=== PATIENT | female | born 1955 | race Caucasian/White ===

== ENCOUNTER → 2024-03-13 12:45 | Outpatient (REF) | payer BC, MEDICARE, SELFPAY | LOC: RAD 12:45 | PROVIDERS: ATTENDING PHYSICIAN Internal Medicine | DX: R05.1 Acute cough (principal); J47.9 Bronchiectasis, uncomplicated; J45.20 Mild intermittent asthma, uncomplicated | CPT/HCPCS: 71046 ==

== ENCOUNTER → 2024-05-23 11:16 | Outpatient (REF) | payer BC, SELFPAY | LOC: MRI 3T 11:16 | PROVIDERS: ATTENDING PHYSICIAN Orthopaedic Surgery Orthopaedic Surgery of the Spine | DX: M24.29 Disorder of ligament, other specified site (principal) | CPT/HCPCS: 72141 ==

== ENCOUNTER → 2024-07-19 14:14 | Outpatient (REF) | payer BC, MEDICARE, SELFPAY | LOC: HWRAD 14:14 | PROVIDERS: ATTENDING PHYSICIAN Nurse Practitioner Adult Health | DX: E04.1 Nontoxic single thyroid nodule (principal); M47.12 Other spondylosis with myelopathy, cervical region | CPT/HCPCS: 72052; 76536 ==

== ENCOUNTER 2024-07-26 05:55 | Day surgery (SDC) | payer BC, MEDICARE, SELFPAY ==
[2024-07-11 10:50] LABS: % Basophils 0.9 % (0-2); % Eosinophils 2.1 % (0-6); % Immature Granulocytes 0.3 % (0-0.5); % Lymphocytes 25.7 % (20.5-51.1); % Monocytes 9.3 % (1.7-9.3); % Neutrophils 61.7 % (42.2-75.2); Absolute Basophils 0.1 10^3/uL (0-0.2); Absolute Eosinophils 0.1 10^3/uL (0-0.7); Absolute Lymphocytes 1.5 10^3/uL (1.2-3.4); Absolute Monocytes 0.5 10^3/uL (0.1-0.6); Absolute Neutrophils 3.5 10^3/uL (1.4-6.5); Hematocrit 39.6 % (37.0-47.0); Hemoglobin 13.4 g/dL (12.0-16.0); Mean Corp Hgb Conc. 33.8 g/dL (33.0-37.0); Mean Corpuscular Hgb 30.5 pg (27.0-31.0); Mean Corpuscular Volume 90.2 fL (81.0-99.0); Mean Platelet Volume 12.1 fL (7.4-10.4); Nucleated Red Blood Cells % 0 %; Platelet Count 186 10^3/uL (130-400); Red Blood Cell Count 4.39 10^6/uL (4.20-5.40); Red Cell Dist. Width 12.2 % (11.5-14.5); White Blood Cell Count 5.7 10^3/uL (4.8-10.8)
[2024-07-11 11:17] LABS: ALT (SGPT) 34 U/L (0-35); AST (SGOT) 32 U/L (14-36); Albumin 4.8 g/dl (3.5-5.0); Alkaline Phosphatase 81 U/L (38-126); Blood Urea Nitrogen 19 mg/dl (7-17); Calcium 9.8 mg/dl (8.4-10.2); Carbon Dioxide 28 mmol/L (22-30); Chloride 99 mmol/L (98-107); Glucose 78 mg/dl (70-99); HDL Cholesterol 65 mg/dl; LDL Cholesterol, Calculated 54 mg/dl; Potassium 4.1 mmol/L (3.5-5.1); Sodium 139 mmol/L (135-145); Total Bilirubin 1.4 mg/dl (0.2-1.3); Total Cholesterol 134 mg/dl (50-199); Total Protein 7.2 g/dl (6.3-8.2); Triglyceride 76 mg/dl (10-149); Very Low Density Lipoprotein 15 mg/dl (0-30); eGFR > 60.00
[2024-07-11 11:34] LABS: Vitamin D, 25-OH*** 61.8 ng/mL (30-80)
[2024-07-11 11:47] LABS: TSH Reflex To Free T4 2.11 uIU/ml (0.47-4.68)
[2024-07-11 11:58] LABS: Glycohemoglobin (HgbA1c) 5.2 % (4.0-5.6)
[2024-07-11 13:40] VITALS: BMI 28.0
[2024-07-20 14:30] VITALS: BMI 28.0
[2024-07-26] VITALS (21 sets, daily range): BP systolic 107–134; BP diastolic 45–72; PULSE 88; O2SAT 94; BMI 28.0
[2024-07-26] MEDS: CELEBREX 200 MG PO (06:45)
[2024-07-26] MEDS: LYRICA 150 MG PO (06:45)
[2024-07-26] MEDS: METHOCARBAMOL 750 MG PO (06:45)
[2024-07-26] MEDS: TYLENOL 1000 MG PO ×4 (06:46→23:47)
[2024-07-26] MEDS: NORMOSOL-R/PLASMALYTE-A 1000 IV ×3 (06:47→23:47)
[2024-07-26] MEDS: ULTRAM 50 MG PO ×2 (12:27→23:47)
[2024-07-26] MEDS: LIPITOR 40 MG PO (12:27)
[2024-07-26] MEDS: ANCEF 5 IV ×2 (14:09→21:40)
[2024-07-26] MEDS: PLAQUENIL 200 MG PO (21:40)
[2024-07-26] MEDS: COZAAR 25 MG PO (21:40)
[2024-07-26] MEDS: ZYRTEC 10 MG PO (21:41)
[2024-07-26] MEDS: RESTASIS 0.05% OPHTHALMIC EMULSION 1 DROPS BOTH EYES (21:41)
[2024-07-26] MEDS: SINGULAIR 10 MG PO (21:41)
[2024-07-26] MEDS: SENOKOT 17.2 MG PO (21:41)
[2024-07-26] MEDS: COLACE 100 MG PO (21:41)
[2024-07-26] MEDS: LYRICA 50 MG PO (21:42)
[2024-07-26] MEDS: METHOCARBAMOL 1500 MG PO (23:47)
[2024-07-27 03:11] VITALS: BP 116/53
[2024-07-27] MEDS: TYLENOL 1000 MG PO (06:07)
[2024-07-27 06:31] LABS: Hemoglobin 10.9 g/dL (12.0-16.0)
[2024-07-27 06:51] LABS: Blood Urea Nitrogen 9 mg/dl (7-17); Calcium 8.9 mg/dl (8.4-10.2); Carbon Dioxide 30 mmol/L (22-30); Chloride 103 mmol/L (98-107); Estimated Creatinine Clearance 94 ml/min; Glucose 92 mg/dl (70-99); Potassium 3.6 mmol/L (3.5-5.1); Sodium 136 mmol/L (135-145); eGFR > 60.00
[2024-07-27 08:00] VITALS: BP 139/68
--- NOTE | 2024-07-27 08:13 | W.DS.TRANS ---
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
-
Discharge Instructions:
Instructions:
Stand-Alone Forms:
Changes to Home Medications: No
Discharge Medications:
DC Medications w/original date entered in [email or web address]
aspirin 81 mg tablet,delayed release 81 mg PO DAILY 03/21/18
montelukast 10 mg tablet 10 mg PO HS 03/21/18
hydrochlorothiazide 25 mg tablet 25 mg PO DAILY #14 tabs 03/22/18
B12 Active 50 mg PO DAILY 07/19/24
Magnesium Taurate 125 mg PO BID 07/19/24
acetaminophen 650 mg tablet,extended release 1,300 mg PO Q12H 07/19/24
albuterol sulfate 0.63 mg/3 mL solution for nebulization 0.63 mg inhalation Q4H PRN asthma 07/19/24
ascorbic acid (vitamin C) 1,000 mg tablet (Vitamin C) 1,000 mg PO DAILY 07/19/24
atorvastatin 40 mg tablet 40 mg PO DAILY 07/19/24
cetirizine 10 mg tablet (Zyrtec) 10 mg PO HS 07/19/24
cholecalciferol (vitamin D3) 25 mcg (1,000 unit) tablet (Vitamin D3) 50 mcg PO DAILY 07/19/24
cyclosporine 0.05 % eye drops in a dropperette 1 drp BOTH EYES Q12H 07/19/24
diclofenac sodium 1 % topical gel 1 ea topical HS 07/19/24
docusate sodium 100 mg capsule (Colace) 100 mg PO BID 07/19/24
estradiol 0.01% (0.1 mg/gram) vaginal cream 1 appful vaginal MOWEFR 07/19/24
gabapentin 300 mg capsule 300 mg PO DAILY 07/19/24
gabapentin 300 mg capsule 900 mg PO HS 07/19/24
hydroxychloroquine 200 mg tablet 200 mg PO BID 07/19/24
losartan 50 mg tablet 50 mg PO HS 07/19/24
omega-3 fatty acids-fish oil 684 mg-1,200 mg capsule,delayed release 1 cap PO DAILY 07/19/24
sodium chloride 0.9 % solution 3 ml miscellaneous PRN PRN nebulizer solution 07/19/24
tirzepatide (weight loss) 12.5 mg/0.5 mL subcutaneous pen injector (Zepbound) 12.5 mg SC SA 07/19/24
Home Medication Changes
Pending Results: No
--- NOTE | 2024-07-27 08:13 | W.PN.SP ---
Today's Communication / Plan
-
s/p ACDFDoing well
PT
D/C
Subjective / Objective
Subjective Data
Pt doing well
Shoulders better
MOving both UE
Objective Data
Vital Signs
Temp Pulse Resp BP Pulse Ox
98.2 F 72 17 116/53 94
07/27/24 03:11 07/27/24 03:11 07/27/24 03:11 07/27/24 03:11 07/27/24 03:11
Intake and Output
07/26/24 07/27/24 07/28/24
06:59 06:59 06:59
Intake Total 2380 / 2380
Output Total 300 / 300
Balance 2079 / 2080
Intake:
Oral fluids 960 / 960
IV fluids (Total) 1420 / 1420
Normosol 400 / 400
Output:
Urine, Voided 300 / 300
Other:
Number of approximated MODERATE 1
amounts of urine
Number of approximated LARGE 1
amounts of urine
Lab Data
07/27/24 06:19
07/27/24 06:19
--- NOTE | 2024-07-27 08:23 | W.PN.ORTHO ---
Today's Communication / Plan
-
D/C when stable
Assessment
.
Distal Motor Intact: Yes
Dressing:
Clean, dry and intact.
Assessment:
*Prevention of post-op complications re orthostasis and constipation/ileus --discussed and outlined in d/c instructions: TEDs stockings, minimizing opioid, adequate hydration and adhering to bowel regimen*
Plan
.
Surgery / Date: C5-6 ACDF 07/26/24
Activity:
Out of bed.
PT/OT
Discharge Plan: Home
Subjective
.
.:
Patient resting comfortably.
Vital Signs and Labs
.
Vital Signs and Labs:
Lab Results
07/27/24 06:19
07/27/24 06:19
Temp Pulse Resp BP Pulse Ox
98.2 F 72 17 116/53 94
07/27/24 03:11 07/27/24 03:11 07/27/24 03:11 07/27/24 03:11 07/27/24 03:11
Physical Exam
-
HEENT: No pallor, cyanosis, or jaundice. Throat clear.
NECK: Supple. No JVD.
RESPIRATORY: Lungs clear to auscultation.
CVS: S1, S2 normal. RRR.� No murmur, rub or gallop.
ABDOMEN: Soft, non-tender. No distension. BS+/normal.
EXTREMITIES: strength equal, no calf pain with palpation
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 No focal deficits. socially responsible investment adviser grossly intact
--- NOTE | 2024-07-27 08:34 | W.DS.TRANS ---
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
-
Discharge Instructions:
Discharge Diagnosis/Procedures C 5-6 ACDF
Diet As tolerated
Activity No strenuous activity
Additional Activity Adequate hydration, minimize Oxy and wear TEDs
stockings to prevent low blood pressure/
dizziness
Driving Restrictions No driving
Instructions:
Stand-Alone Forms: [facility] D/C Inst.
Changes to Home Medications: Yes
Discharge Medications:
DC Medications w/original date entered in [facility]
aspirin 81 mg tablet,delayed release 81 mg PO DAILY 03/21/18
montelukast 10 mg tablet 10 mg PO HS 03/21/18
B12 Active 50 mg PO DAILY 07/19/24
Magnesium Taurate 125 mg PO BID 07/19/24
albuterol sulfate 0.63 mg/3 mL solution for nebulization 0.63 mg inhalation Q4H PRN asthma 07/19/24
ascorbic acid (vitamin C) 1,000 mg tablet (Vitamin C) 1,000 mg PO DAILY 07/19/24
atorvastatin 40 mg tablet 40 mg PO DAILY 07/19/24
cetirizine 10 mg tablet (Zyrtec) 10 mg PO HS 07/19/24
cholecalciferol (vitamin D3) 25 mcg (1,000 unit) tablet (Vitamin D3) 50 mcg PO DAILY 07/19/24
cyclosporine 0.05 % eye drops in a dropperette 1 drp BOTH EYES Q12H 07/19/24
diclofenac sodium 1 % topical gel 1 ea topical HS 07/19/24
docusate sodium 100 mg capsule (Colace) 100 mg PO BID 07/19/24
estradiol 0.01% (0.1 mg/gram) vaginal cream 1 appful vaginal MOWEFR 07/19/24
gabapentin 300 mg capsule 300 mg PO DAILY 07/19/24
gabapentin 300 mg capsule 900 mg PO HS 07/19/24
hydroxychloroquine 200 mg tablet 200 mg PO BID 07/19/24
omega-3 fatty acids-fish oil 684 mg-1,200 mg capsule,delayed release 1 cap PO DAILY 07/19/24
sodium chloride 0.9 % solution 3 ml miscellaneous PRN PRN nebulizer solution 07/19/24
tirzepatide (weight loss) 12.5 mg/0.5 mL subcutaneous pen injector (Zepbound) 12.5 mg SC SA 07/19/24
Saccharomyces boulardii 250 mg capsule (Florastor) 250 mg PO BID #1 cap 07/27/24
acetaminophen 650 mg tablet,extended release 1,300 mg (2 x 650 mg) PO TID #0 tabs 07/27/24
cephalexin 500 mg capsule 500 mg PO QID infection prevention #20 caps 07/27/24
dexamethasone 4 mg tablet 4 mg PO BID inflammation #6 tabs 07/27/24
docusate sodium 100 mg capsule (Colace) 100 mg PO BID stool softner #1 cap 07/27/24
hydrochlorothiazide 25 mg tablet 25 mg PO DAILY #14 tabs 07/27/24
losartan 50 mg tablet 50 mg PO HS #0 tabs 07/27/24
magnesium hydroxide 400 mg/5 mL oral suspension (Milk of Magnesia) 30 ml PO HS PRN constipation #1 mL 07/27/24
ondansetron 4 mg disintegrating tablet 4 mg PO Q6H PRN n/v #20 tabs 07/27/24
oxycodone 5 mg tablet 5 mg PO Q6H PRN moderate-severe pain #30 tabs 07/27/24
sennosides 8.6 mg tablet (Senokot) 17.2 mg (2 x 8.6 mg) PO BID laxative #2 tabs 07/27/24
Home Medication Changes
tirzepatide (weight loss) 12.5 mg/0.5 mL subcutaneous pen injector (Zepbound) 12.5 mg SC SA 07/19/24
Saccharomyces boulardii 250 mg capsule (Florastor) 250 mg PO BID #1 cap 07/27/24
acetaminophen 650 mg tablet,extended release 1,300 mg (2 x 650 mg) PO TID #0 tabs 07/27/24
cephalexin 500 mg capsule 500 mg PO QID infection prevention #20 caps 07/27/24
dexamethasone 4 mg tablet 4 mg PO BID inflammation #6 tabs 07/27/24
docusate sodium 100 mg capsule (Colace) 100 mg PO BID stool softner #1 cap 07/27/24
hydrochlorothiazide 25 mg tablet 25 mg PO DAILY #14 tabs 07/27/24
losartan 50 mg tablet 50 mg PO HS #0 tabs 07/27/24
magnesium hydroxide 400 mg/5 mL oral suspension (Milk of Magnesia) 30 ml PO HS PRN constipation #1 mL 07/27/24
ondansetron 4 mg disintegrating tablet 4 mg PO Q6H PRN n/v #20 tabs 07/27/24
oxycodone 5 mg tablet 5 mg PO Q6H PRN moderate-severe pain #30 tabs 07/27/24
sennosides 8.6 mg tablet (Senokot) 17.2 mg (2 x 8.6 mg) PO BID laxative #2 tabs 07/27/24
Pending Results: No
--- NOTE | 2024-07-27 08:45 | CM ---
Cm reviewed medical records. CM met with patient in room. Patient confirmed demographics. Patient is active with her PCP. Patient has medication coverage.
Patient's son Jose will provide transportation home.
PLAN: home no further needs.
[2024-07-27 08:50] VITALS: BP 136/67; BP 140/72; PULSE 68; O2SAT 95
[2024-07-27] MEDS: LIPITOR 40 MG PO (09:32)
[2024-07-27] MEDS: SENOKOT 17.2 MG PO (09:32)
[2024-07-27] MEDS: PLAQUENIL 200 MG PO (09:32)
[2024-07-27] MEDS: COLACE 100 MG PO (09:32)
[2024-07-27] MEDS: LYRICA 50 MG PO (09:33)
[2024-07-27] MEDS: RESTASIS 0.05% OPHTHALMIC EMULSION 1 DROPS BOTH EYES (09:33)
[2024-07-27 10:05] VITALS: BP 137/69; PULSE 90; O2SAT 97
[2024-07-27 10:46] VITALS: BP 152/73
--- NOTE | 2024-07-27 11:33 | W.DS.TRANS ---
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
-
Discharge Instructions:
Discharge Diagnosis/Procedures C 5-6 ACDF
Diet As tolerated
Activity No strenuous activity
Additional Activity Adequate hydration, minimize Oxy and wear TEDs
stockings to prevent low blood pressure/
dizziness
Driving Restrictions No driving
Instructions:
Stand-Alone Forms: [facility]ick Cervical D/C Inst.
Changes to Home Medications: Yes
Discharge Medications:
DC Medications w/original date entered in [facility] [employer]
aspirin 81 mg tablet,delayed release 81 mg PO DAILY 03/21/18
montelukast 10 mg tablet 10 mg PO HS 03/21/18
B12 Active 50 mg PO DAILY 07/19/24
Magnesium Taurate 125 mg PO BID 07/19/24
albuterol sulfate 0.63 mg/3 mL solution for nebulization 0.63 mg inhalation Q4H PRN asthma 07/19/24
ascorbic acid (vitamin C) 1,000 mg tablet (Vitamin C) 1,000 mg PO DAILY 07/19/24
atorvastatin 40 mg tablet 40 mg PO DAILY 07/19/24
cetirizine 10 mg tablet (Zyrtec) 10 mg PO HS 07/19/24
cholecalciferol (vitamin D3) 25 mcg (1,000 unit) tablet (Vitamin D3) 50 mcg PO DAILY 07/19/24
cyclosporine 0.05 % eye drops in a dropperette 1 drp BOTH EYES Q12H 07/19/24
diclofenac sodium 1 % topical gel 1 ea topical HS 07/19/24
docusate sodium 100 mg capsule (Colace) 100 mg PO BID 07/19/24
estradiol 0.01% (0.1 mg/gram) vaginal cream 1 appful vaginal MOWEFR 07/19/24
gabapentin 300 mg capsule 300 mg PO DAILY 07/19/24
gabapentin 300 mg capsule 900 mg PO HS 07/19/24
hydroxychloroquine 200 mg tablet 200 mg PO BID 07/19/24
omega-3 fatty acids-fish oil 684 mg-1,200 mg capsule,delayed release 1 cap PO DAILY 07/19/24
sodium chloride 0.9 % solution 3 ml miscellaneous PRN PRN nebulizer solution 07/19/24
tirzepatide (weight loss) 12.5 mg/0.5 mL subcutaneous pen injector (Zepbound) 12.5 mg SC SA 07/19/24
Saccharomyces boulardii 250 mg capsule (Florastor) 250 mg PO BID #1 cap 07/27/24
acetaminophen 650 mg tablet,extended release 1,300 mg (2 x 650 mg) PO TID #0 tabs 07/27/24
cephalexin 500 mg capsule 500 mg PO QID infection prevention #20 caps 07/27/24
dexamethasone 4 mg tablet 4 mg PO BID inflammation #6 tabs 07/27/24
docusate sodium 100 mg capsule (Colace) 100 mg PO BID stool softner #1 cap 07/27/24
hydrochlorothiazide 25 mg tablet 25 mg PO DAILY #14 tabs 07/27/24
losartan 50 mg tablet 50 mg PO HS #0 tabs 07/27/24
magnesium hydroxide 400 mg/5 mL oral suspension (Milk of Magnesia) 30 ml PO HS PRN constipation #1 mL 07/27/24
ondansetron 4 mg disintegrating tablet 4 mg PO Q6H PRN n/v #20 tabs 07/27/24
sennosides 8.6 mg tablet (Senokot) 17.2 mg (2 x 8.6 mg) PO BID laxative #2 tabs 07/27/24
tizanidine 2 mg capsule 2 mg PO BID PRN muscle relaxer/sleep #20 caps 07/27/24
tramadol 50 mg tablet 50 mg PO Q6H PRN 1 tab moderate pain, 2 if severe #30 tabs 07/27/24
Home Medication Changes
cephalexin 500 mg capsule 500 mg PO QID infection prevention #20 caps 07/27/24
dexamethasone 4 mg tablet 4 mg PO BID inflammation #6 tabs 07/27/24
docusate sodium 100 mg capsule (Colace) 100 mg PO BID stool softner #1 cap 07/27/24
hydrochlorothiazide 25 mg tablet 25 mg PO DAILY #14 tabs 07/27/24
losartan 50 mg tablet 50 mg PO HS #0 tabs 07/27/24
magnesium hydroxide 400 mg/5 mL oral suspension (Milk of Magnesia) 30 ml PO HS PRN constipation #1 mL 07/27/24
ondansetron 4 mg disintegrating tablet 4 mg PO Q6H PRN n/v #20 tabs 07/27/24
sennosides 8.6 mg tablet (Senokot) 17.2 mg (2 x 8.6 mg) PO BID laxative #2 tabs 07/27/24
tizanidine 2 mg capsule 2 mg PO BID PRN muscle relaxer/sleep #20 caps 07/27/24
tramadol 50 mg tablet 50 mg PO Q6H PRN 1 tab moderate pain, 2 if severe #30 tabs 07/27/24
Pending Results: No
== END 2024-07-27 11:45 | disposition home or self-care (01) ==
LOC: SDS 05:55
PROVIDERS: Physician Assistant Medical; ATTENDING PHYSICIAN Orthopaedic Surgery Orthopaedic Surgery of the Spine; FAMILY PHYSICIAN Nurse Practitioner Adult Health
DX: M47.12 Other spondylosis with myelopathy, cervical region (principal); M48.02 Spinal stenosis, cervical region
CPT/HCPCS: 22551; 22853; 20930; 22845; 36415; 72020; 80048; 80053; 80061; 82306; 83036; 84443; 85014; 85018; 85025; 86850; 86900; 86901; 87070; 93005; 97116; 97162; 97167; 97530; C1713

== ENCOUNTER 2024-10-10 15:14 | Outpatient (RCR) | payer BC, SELFPAY | END 2024-10-10 23:59 | disposition home or self-care (01) | LOC: RPT 15:14 | PROVIDERS: ATTENDING PHYSICIAN Physician Assistant Medical; FAMILY PHYSICIAN Nurse Practitioner Adult Health | DX: M47.12 Other spondylosis with myelopathy, cervical region (principal); M48.02 Spinal stenosis, cervical region; M70.61 Trochanteric bursitis, right hip; Z73.6 Limitation of activities due to disability; M62.81 Muscle weakness (generalized); M43.22 Fusion of spine, cervical region | CPT/HCPCS: 97010; 97112; 97140; 97163; 97530 ==

== ENCOUNTER 2024-11-10 09:16 | Outpatient (RCR) | payer BC, SELFPAY | END 2024-11-10 23:59 | disposition home or self-care (01) | LOC: RPT 09:16 | PROVIDERS: ATTENDING PHYSICIAN Physician Assistant Medical; FAMILY PHYSICIAN Nurse Practitioner Adult Health | DX: M47.12 Other spondylosis with myelopathy, cervical region (principal); M48.02 Spinal stenosis, cervical region; M70.61 Trochanteric bursitis, right hip; Z73.6 Limitation of activities due to disability; M62.81 Muscle weakness (generalized); M43.22 Fusion of spine, cervical region | CPT/HCPCS: 97010; 97110; 97112; 97140 ==

== ENCOUNTER 2024-12-11 11:39 | Outpatient (RCR) | payer BC, SELFPAY | END 2024-12-11 23:59 | disposition home or self-care (01) | LOC: RPT 11:39 | PROVIDERS: ATTENDING PHYSICIAN Physician Assistant Medical; FAMILY PHYSICIAN Nurse Practitioner Adult Health | DX: M47.12 Other spondylosis with myelopathy, cervical region (principal); M48.02 Spinal stenosis, cervical region; M70.61 Trochanteric bursitis, right hip; Z73.6 Limitation of activities due to disability; M62.81 Muscle weakness (generalized); M43.22 Fusion of spine, cervical region | CPT/HCPCS: 97010; 97110; 97112; 97140; 97530 ==

== ENCOUNTER 2025-01-12 09:38 | Outpatient (RCR) | payer BC, SELFPAY | END 2025-01-12 23:59 | disposition home or self-care (01) | LOC: RPT 09:38 | PROVIDERS: ATTENDING PHYSICIAN Physician Assistant Medical; FAMILY PHYSICIAN Nurse Practitioner Adult Health | DX: M47.12 Other spondylosis with myelopathy, cervical region (principal); M48.02 Spinal stenosis, cervical region; M70.61 Trochanteric bursitis, right hip; Z73.6 Limitation of activities due to disability; M62.81 Muscle weakness (generalized); M43.22 Fusion of spine, cervical region | CPT/HCPCS: 97010; 97110; 97112; 97530 ==

== ENCOUNTER 2025-01-26 08:52 | Outpatient (RCR) | payer BC, SELFPAY | END 2025-01-26 23:59 | disposition home or self-care (01) | LOC: RPT 08:52 | PROVIDERS: ATTENDING PHYSICIAN Physician Assistant Medical; FAMILY PHYSICIAN Nurse Practitioner Adult Health | DX: M47.12 Other spondylosis with myelopathy, cervical region (principal); M48.02 Spinal stenosis, cervical region; M70.61 Trochanteric bursitis, right hip; Z73.6 Limitation of activities due to disability; M62.81 Muscle weakness (generalized); M43.22 Fusion of spine, cervical region | CPT/HCPCS: 97010; 97110; 97112; 97530 ==

== ENCOUNTER → 2025-02-20 13:38 | Outpatient (REF) | payer BC, SELFPAY | LOC: RAD 13:38 | PROVIDERS: ATTENDING PHYSICIAN Registered Nurse; FAMILY PHYSICIAN Nurse Practitioner Adult Health | DX: R05.1 Acute cough (principal) | CPT/HCPCS: 71046 ==